=== PATIENT | female | born 1940 | race Caucasian/White ===

== ENCOUNTER → 2017-01-17 | Outpatient (CLI) | payer MEDICARE, BC ==
[~2017-01-17] MED LIST: ALLFEN400 MG PO; AUGMENTIN 875-1 EACH PO; BENADRYL12.5 MG/5; BENADRYL25 MG PO; CORDARONE,PACE200 MG PO; COUMADIN2.5 MG PO; COUMADIN5 MG PO; DELTASONE20 MG PO; GUAIFENESIN ER600 MG PO; GUIATUSS AC (D480 ML PO; HYDRODIURIL12.5 MG PO; KLOR-CON M2020 MEQ PO; LOPRESSOR25 MG PO; MYLANTA (MAG-AL30 ML PO; PROVENTIL HFA6.7 GM INH; PROVENTIL2.5 MG/0.5 IH; SYMBICORT 160/41 KIT INH; SYMBICORT 16010.2 GM INH; TUMS REGULAR ST1 TAB PO; TYLENOL EXTRA500 MG PO; TYLENOL PM EX-1 EACH PO; [UNRECOGNIZED DRUG - OTHER] PO
[2017-01-17 19:24] LABS: BASOPHIL % 0.3 %; EOSINOPHIL # 0.1 K/uL (0.0-0.5); HEMATOCRIT 40.4 % (33.0-46.0); HEMOGLOBIN 13.3 g/dL (10.0-15.0); IMMATURE GRANULOCYTE % 0.3 %; LYMPHOCYTE % 28.4 %; MCH 31.7 pg (27.0-34.0); MCHC 32.9 gm/dL (32.0-36.5); MCV 96.2 fl (83.0-98.0); MONOCYTE # 0.4 K/uL (0.0-1.0); MONOCYTE % 5.8 %; MPV 12.4 fl (9.4-12.4); NEUTROPHIL # (ANC) 4.4 K/uL (1.8-7.8); NEUTROPHIL % 64.2 %; NRBC % 0 /100WBC (0-0.00); PLATELET COUNT 223 K/uL (150-450); RDW-CV 12.2 % (11.9-14.6); WBC 6.9 K/uL (4.0-11.0)
[2017-01-17 19:38] LABS: ALK PHOS 67 IU/L (33-138); ALT 27 IU/L (12-78); ANION GAP 14.8 (10.0-19.0); AST 17 IU/L (10-40); BLOOD UREA NITROGEN 23 mg/dL (6-24); CALCIUM 8.9 mg/dL (8.5-10.5); CHLORIDE 108 mMol/L (96-110); CO2 24 mMol/L (22-32); CREATININE 0.8 mg/dL (0.5-1.1); ESTIMATED GFR (MDRD EQUATION) > 60; POTASSIUM 3.8 mMol/L (3.7-5.1); SODIUM 143 mMol/L (135-145); TOTAL BILIRUBIN 0.3 mg/dL (0.0-1.5)
== END | disposition disaster alternative care site (69) ==
LOC: LNHI 18:52
PROVIDERS: Internal Medicine Cardiovascular Disease
DX: I48.2 Chronic atrial fibrillation (principal); J84.17 Other interstitial pulmonary diseases with fibrosis in diseases classified elsewhere; E78.5 Hyperlipidemia, unspecified